=== PATIENT | male | born 1970 | race African-American/Black ===

== ENCOUNTER 2018-01-30 16:48 | Emergency (ER) | payer OTHER ==
[2018-01-30] MEDS: IBUPROFEN 600 MG TAB PO (19:41)
== END 2018-01-30 20:29 | disposition home or self-care (01) ==
LOC: M ED 16:48
DX: K04.7 Periapical abscess without sinus (principal); K08.89 Other specified disorders of teeth and supporting structures; R22.0 Localized swelling, mass and lump, head
CPT/HCPCS: 99283